=== PATIENT | female | born 1955 | race Native Hawaiian/Other Pacific Islander ===

== ENCOUNTER 2022-12-26 20:29 | Emergency (ER) | payer OTHER ==
[~2022-12-26] VITALS: Ht 182.9 cm; Wt 98.9 kg
[2022-12-26 20:30] VITALS: TEMP 98.2
[2022-12-26 20:57] LABS: PLATELET COUNT 191 K/uL (152-353); POTASSIUM 4.4 mmol/L (3.6-5.2)
[2022-12-26 21:19] VITALS: BP 150/89
[2022-12-27] MEDS ORDERED: LICE TREATMT1 % TOP (11:37)
[2022-12-27] MEDS ORDERED: 904272561 PO (11:39)
[2022-12-27] MEDS ORDERED: BUSPIRONE HYDROC5 MG PO (11:41)
[2022-12-27] MEDS ORDERED: LORA0.5T17 PO (11:41)
[2022-12-27] MEDS ORDERED: DULO60CA2 PO (11:43)
[2022-12-27] MEDS ORDERED: CYCL10TA35 PO (11:45)
[2022-12-27] MEDS ORDERED: LACTULOSE10 GM PO (11:47)
[2022-12-27] MEDS ORDERED: GABA300C2 PO (11:48)
[2022-12-27] MEDS ORDERED: CORTEF20 MG PO (11:51)
[2022-12-27] MEDS ORDERED: PROPRANOLOL HYD10 MG PO (11:52)
[2022-12-27] MEDS ORDERED: ELIQUIS5 MG PO (11:53)
[2022-12-27] MEDS ORDERED: KLOR-CON M2020 MEQ PO (12:01)
[2022-12-27] MEDS ORDERED: CVS STOOL SOFT100 MG PO (12:02)
[2022-12-27] MEDS ORDERED: DULO30CA PO (12:04)
[2022-12-27] MEDS ORDERED: ANTACID500 MG PO (12:09)
[2022-12-27] MEDS ORDERED: FLONASE AL50 MCG/ACT NAS (12:12)
[2022-12-27] MEDS ORDERED: EUTHYROX88 MCG PO (12:14)
[2022-12-27] MEDS ORDERED: FLUDROCORT0.1 MG PO (12:15)
[2022-12-27] MEDS ORDERED: TYLENOL325 MG PO (12:15)
[2022-12-27] MEDS ORDERED: PRIM50TA4 PO (12:16)
[2022-12-27] MEDS ORDERED: ALLER-TEC10 MG PO (12:17)
== END 2022-12-26 21:20 | disposition still patient (30) ==
LOC: ED 20:29
PROVIDERS: Internal Medicine
DX: F22 Delusional disorders (principal); Z11.52 Encounter for screening for COVID-19; Z04.6 Encounter for general psychiatric examination, requested by authority
CPT/HCPCS: 36415; 80053; 85027; 87635; 93005; 99283; U0003